=== PATIENT | male | born 1945 | race Caucasian/White ===

== ENCOUNTER → 2016-07-01 | Outpatient (CLI) | payer OTHER ==
[2016-07-01 12:15] LABS: BASOPHILS # (AUTO) 0.05 10*3/UL; BASOPHILS % (AUTO) 0.5 % (0-1); EOSINOPHILS % (AUTO) 2.1 % (0-8); HEMATOCRIT 41.2 % (42.0-52.0); HEMOGLOBIN 13.6 g/dL (14.0-18.0); IMM GRAN % (AUTO) 0.5 % (0-5); IMM GRAN# (AUTO) 0.05 10*3/UL; LYMPHOCYTES # (AUTO) 2.77 10*3/uL; LYMPHOCYTES % (AUTO) 25.7 % (10-50); MEAN CORPUSCULAR HEMOGLOBIN 26.6 PG (27-31); MEAN PLATELET VOLUME 9.8 FL (7.4-12.2); MONOCYTES # (AUTO) 0.82 10*3/UL (0.3-0.8); MONOCYTES % (AUTO) 7.6 % (5-15); NEUTROPHILS # (AUTO) 6.84 10*3/UL; NEUTROPHILS % (AUTO) 63.6 % (50-80); RDW COEFFICIENT OF VARIATION 15.9 % (11.5-14.5); RED BLOOD COUNT 5.11 10^6/uL (4.70-6.10); WHITE BLOOD COUNT 10.76 10^3/uL (4.8-10.8)
[2016-07-01 12:19] LABS: PLATELET MORPHOLOGY COMMENT NORMAL MORPHOLOGY (NORM)
== END ==
LOC: MOB LAB 09:14
DX: D72.829 Elevated white blood cell count, unspecified (principal); F17.220 Nicotine dependence, chewing tobacco, uncomplicated
CPT/HCPCS: 36415; 85025

== ENCOUNTER → 2016-07-07 | Outpatient (CLI) | payer OTHER | LOC: MMPC 11:11 | PROVIDERS: ATTEND Surgery | DX: Z12.11 Encounter for screening for malignant neoplasm of colon (principal); K21.9 Gastro-esophageal reflux disease without esophagitis; Z79.899 Other long term (current) drug therapy | CPT/HCPCS: 99213; G0463 ==

== ENCOUNTER → 2016-07-13 | Outpatient (CLI) | payer OTHER | LOC: LAB 11:05 | PROVIDERS: ATTEND Surgery | DX: Z22.322 Carrier or suspected carrier of Methicillin resistant Staphylococcus aureus (principal) | CPT/HCPCS: 87641 ==

== ENCOUNTER 2016-07-15 07:44 | Day surgery (SDC) | payer OTHER ==
[~2016-07-15 07:44] MED LIST: LIDOCAINE 2% VISCOUS(20 MG/1 ML) - 15 ML UD CUP PO ONE; LIDOCAINE HCL/PF 2% (20 MG/ML) - 5 ML SYRINGE ONE; LIDOCAINE W/ SODIUM BICARB 0.5 ML SYR ONE; Lactated Ringers 1,000 ML PRIMARY IV ONE; MIDAZOLAM 5 MG/1 ML ONE; fentaNYL Inj 100 MCG/2 ML VIAL ONE
--- NOTE | 2016-07-15 09:10 | GEN.OPNOTE ---
EGD / Colonoscopy Report Surgery Date: 07/15/16 Preoperative Diagnosis: GERD. Colon cancer screening. History of low iron stores. Postoperative Diagnosis: Same with small hiatal hernia and diverticulosis of the sigmoid colon. Procedure: #1 esophagogastroduodenoscopy with biopsy. #2 complete colonoscopy. Surgeon: Olayinka Santacruz MD Anesthesia Provider: Jordan Hackett CRNA Anesthesia Type: MAC Indications: See preoperative diagnosis. EGD Findings: Esophagus: [Normal] GE Junction : [Normal with a small hiatal hernia.] Fundus : [Normal] Body : [Normal] Prepyloric : [Erythema and friability consistent with gastritis.] Small Intestine : [Normal] A lubricated flexible upper endoscope was inserted and passed through the esophagus and stomach into the duodenum. Duodenum and duodenal bulb were unremarkable. Pyloric channel was widely patent. There is erythema and friability of the gastric antrum. Multiple biopsies were taken. Hemostasis was assured. The scope was retroflexed. There is a small hiatal hernia. The scope was straightened. Air was aspirated. The scope was withdrawn into the distal esophagus. As patient has chronic heartburn and is on a proton pump inhibitor I opted to do several random biopsies at the GE junction. Hemostasis was assured. The scope was withdrawn through the remainder of a normal- appearing esophagus completing that portion of the procedure. Colonoscopy Findings: Prep : [Excellent] Cecum : [Normal] Ascending : [Normal] Transverse : [Normal] Sigmoid : [Diverticulosis] Rectum : [Normal] Digital Rectal Exam : [Slightly enlarged. Small nodule on the right side. PSA 2.9 in 2016.] A lubricated flexible colonoscope was inserted and passed to the blind end of the cecum. The appendiceal orifice and ileocecal valve were clearly seen. Air was aspirated as the scope was withdrawn. Other than sigmoid diverticulosis the colonoscopy was normal without polyp, tumor, neoplastic mass, infectious or inflammatory process. The scope was withdrawn completing the procedure. Patient tolerated all aspects of the procedure well without complication. He was taken to outpatient surgery in stable condition. We will call the biopsy results when available. Next colonoscopy would be recommended in 10 years time.
[2016-07-15 10:31] VITALS: TEMP 96.8
[2016-07-15 10:36] VITALS: RESP 16
== END 2016-07-15 10:13 | disposition home or self-care (01) ==
LOC: SDSC 07:44
PROVIDERS: ATTEND Surgery
DX: Z12.11 Encounter for screening for malignant neoplasm of colon (principal); K21.9 Gastro-esophageal reflux disease without esophagitis; K44.9 Diaphragmatic hernia without obstruction or gangrene; K57.30 Diverticulosis of large intestine without perforation or abscess without bleeding
CPT/HCPCS: 43239; 45378; J2704; J3010; J2001; J2250; J7120

== ENCOUNTER 2016-08-27 10:40 | Observation (INO) | payer OTHER ==
[2016-08-27] MEDS ORDERED: ASPIRIN 81 MG (BABY) CHEWABLE TABLET PO ONE (10:53)
[2016-08-27] MEDS ORDERED: NORMAL SALINE 10 ML SYRINGE FLUSH IVP PRN ×2 (10:53→13:18)
[2016-08-27] MEDS ORDERED: Sodium Chloride 0.9% 1,000 ML PRIMARY IV ONE (10:53)
--- NOTE | 2016-08-27 10:55 | EKG ---
[address] [address] Measurements Intervals [place] Rate: 57 P: 80 WI: 209 QRS: -6 QRSD: 94 T: 55 QT: 402 QTc: 396 Interpretive Statements SINUS BRADYCARDIA No prior study available for comparison and no acute ST-T changes to suggest acute injury. Electronically Signed On 08-27-16 12:36:02 MDT by Garrison Donnelly MD [id number]
[2016-08-27 11:00] LABS: BASOPHILS # (AUTO) 0.05 10*3/UL; BASOPHILS % (AUTO) 0.4 % (0-1); EOSINOPHILS # (AUTO) 0.33 10*3/UL; EOSINOPHILS % (AUTO) 2.8 % (0-8); HEMATOCRIT 39.8 % (42.0-52.0); HEMOGLOBIN 13.3 g/dL (14.0-18.0); LYMPHOCYTES # (AUTO) 3.43 10*3/uL; MEAN CORPUSCULAR HEMOGLOBIN 26.5 PG (27-31); MEAN CORPUSCULAR HGB CONC 33.4 g/dL (33-37); MEAN PLATELET VOLUME 9.6 FL (7.4-12.2); MONOCYTES # (AUTO) 1.08 10*3/UL (0.3-0.8); MONOCYTES % (AUTO) 9.2 % (5-15); NEUTROPHILS # (AUTO) 6.85 10*3/UL; NEUTROPHILS % (AUTO) 58.2 % (50-80); RED BLOOD COUNT 5.02 10^6/uL (4.70-6.10)
[2016-08-27 11:05] LABS: PLATELET MORPHOLOGY COMMENT NORMAL MORPHOLOGY (NORM); RBC MORPHOLOGY COMMENT NORMAL MORPHOLOGY (NORM); WBC MORPHOLOGY COMMENT NORMAL MORPHOLOGY (NORM)
[2016-08-27 11:06] LABS: CALCIUM 9.5 mg/dL (8.7-10.7); SERUM ALBUMIN 4.1 g/dL (3.5-4.8)
[2016-08-27 11:18] LABS: CREATINE KINASE MB 0.59 NG/ML (0.00-5.00); TROPONIN I < 0.012 ng/mL (< 0.040)
--- NOTE | 2016-08-27 11:56 | DI ---
AP CHEST X-RAY, 08/27/2016 10:53 AM : Clinical History: Chest pain. Previous Exam: 01/04/2007. There is no acute soft tissue or bony abnormality. Heart size is normal. Lungs are clear. Mediastinal structures are normal. There are no pulmonary nodules. Reading: Normal chest x-ray. There has been no change.
--- NOTE | 2016-08-27 12:58 | DI ---
CT ANGIOGRAM OF THE CHEST, 08/27/2016 11:47 AM : Clinical History: Chest pain. Elevated D-dimer test. Previous Exam: None at this facility. Scans are performed from the base of the neck to the lower lung bases following IV administration of 65 mL of Isovue 300. Proprietary automated bolus tracking software was used to verify the timing of t he injection. The base of the neck and thoracic inlet are normal. There are no abnormal axillary, supraclavicular, mediastinal, or hilar nodes. The heart is normal. Coronary artery calcifications are present in the l eft mainstem, the proximal and middle thirds of the LAD, and scattered throughout the right coronary artery. The ascending aorta is ectatic measuring about 37 mm in diameter. There is pulmonary arterial hypertension but no pulmonary emboli are identified and there is no pulmonary infarction. No acute i nfiltrate or effusion is present. There are extensive bullae in both upper lobes as well as scattered throughout the remaining lobes indicating bullous emphysema. Both adrenal glands and the spleen as w ell as the visualized portions of the liver and pancreas are normal. There is osteoporosis. READIN. The CT angiogram of the pulmonary arteries show no emboli. There is pulmonary arterial hypertensi on. 2. Coronary artery disease. Bullous emphysema. Osteoporosis.
[2016-08-27] MEDS ORDERED: CALCIUM CARBONATE 500 MG (TUMS) CHEWABLE TABLET PO PRN (13:18)
[2016-08-27] MEDS ORDERED: LIDOCAINE W/ SODIUM BICARB 0.5 ML SYR SUBD PRN (13:18)
[2016-08-27] MEDS ORDERED: Ropinirole Tab 1 MG TAB PO PRN (13:45)
--- NOTE | 2016-08-27 14:15 | PDOC ---
Chest Pain HPI - General Chief Complaint: Chest Pain Stated Complaint: chest pain Date Seen by Provider: 08/27/16 Time Seen by Provider: 10:42 Source: Patient, EMS Exam Limitations: POSITIVE: No limitations Treatment Prior to Arrival: REPORTS: None Nurse's Notes Reviewed & Considered: Yes EMS Report Reviewed & Considered: Verbal - History of Present Illness Initial Comments: The patient is a 71-year-old male who is brought to the emergency room by ambulance from his residence at the [facility]. 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 Patient describes the pain as an "ache". Patient states that this pain was "severe", and it lasted approximately 30 minutes and has now resolved. Patient states he had a similar episode approximately 10 days ago, but this episode was more severe and more prolonged and lasted about an hour. Patient has a known history of peripheral vascular disease. He has had a repair of an aortic aneurysm and he underwent a bilateral femoral popliteal bypass 3 years ago, followed by an [id number]-[id number] amputation of his left leg due to "an infection". He states he used to smoke 1-1/2 packs of cigarettes per day up until 3 years ago. 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, but that episode more severe and persistent) Recently seen/treated/hospitalized: No Any Prior Injuries Related to Current Complaint?: No - Patient Home Medications Home Medications: Home Medications Aspirin 81 mg PO DAILY tab 10/15/14 Calcium Carbonate [Tums] 200 mg PO DAILY PRN 11/28/14 Ropinirole HCl 1 tab PO QD PRN #30 tab 03/21/15 Amlodipine Besylate 1 tab PO QD #90 tab 09/30/15 Pravastatin Sodium [Pravachol] 1 tab PO DAILY #30 tab 07/01/16 Pantoprazole Sodium [Protonix] 1 tab PO QD #90 tablet 08/17/16 Ascorbic Acid [Vitamin C] 1,000 mg PO DAILY 08/27/16 Ferrous Sulfate [High Potency Iron] 67 mg PO DAILY 08/27/16 - Patient Allergies Allergies/Adverse Reactions: Allergies Allergy/AdvReac Type Severity Reaction Status Date / Time No Known Drug Allergies Allergy NOT Verified 08/27/16 10:49 APPLICABLE Past Medical History - heen HEENT History: Dentures/Partials Additional HEENT History: full dentures Cardiovascular History: Hypertension, PVD, Other (please comment) Additional Cardiovasular History: Hx of AAA repair, femoral artery repair bilateral. Respiratory History: Other (please comment) Additional Respiratory History: Quit smoking in 2012--was a 2 ppd smoker for many years prior to quiting. 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 LEFT HIP FX Neurological History: Denies History Blood Disorders: Anemia Psychiatric History: Denies History History of Sexually Transmitted Diseases: No Male Reproductive History: Denies History Cancer History: Denies History In Past Year Been Physically Harmed or Verbally Threatened: No History of MDRO: Yes History of Other Communicable Diseases: No Tobacco Use: Former Smoker Alcohol Use: Other How much alcohol do you normally drink a day?: 3-4 SHOTS ONCE WEEKLY Substance Use Type: None Previous Surgical History: Yes Type / Date of Surgery: LEFT LEG ATK AMP/ AORTOBIFEMORAL BYPASS/ FEM POP BYPASS BILAT/ DISCECTOMY/ TONSILLECTOMY/ EGD/ ERCP/AAA REPAIR Anesthesia Reactions: Yes ("WAKES UP FIGHTING WITH CERTAIN MEDS") Malignant Hyperthermia: No Significant Family History: Heart disease, Hypertension, Vascular disease Past Medical History Reviewed: Reviewed - No Changes ROS - Limitations ROS Limitations: No Limitations Constitution: REPORTS: Denies Symptoms Cardiovascular: REPORTS: Chest Pain Respiratory: REPORTS: Denies Resp Symptoms Neurological: REPORTS: Denies Neuro Symptoms Gastrointestinal: REPORTS: Denies GI Symptoms Endocrine: REPORTS: Denies Symptoms Musculoskeletal: REPORTS: Denies MS Symptoms Genitourinary: REPORTS: Denies Symptoms Eyes: REPORTS: Denies Symptoms ENT: REPORTS: Denies Symptoms Skin: REPORTS: Denies Skin Symptoms Lympathic: REPORTS: Denies Lympathic Symptoms Immunologic: POSITIVE: Denies Symptoms Psychiatric: POSITIVE: Denies Psych Symptoms Chest Pain PE - General Appearance General Appearance: REPORTS: Alert, Cooperative, No Acute Distress, No Evidence of Trauma - HEENT HEENT: POSITIVE: Head Inspection Nml, Eyes Inspection Nml, Ears Inspection Nml, Nose Inspection Nml, Oral/Dental Inspect. Nml, Pharynx Inspect. Nml, PERRL, EOMI - Neck Neck: REPORTS: Normal Inspection, No Carotid Bruit - Respiratory Respiratory: REPORTS: No Respiratory Distress, Breath Sounds Normal, Chest Non- Tender - Cardiovascular Cardiovascular: REPORTS: Regular Rate and Rhythm, Heart Sounds Normal, Equal Pulses, Strong Pulses, No Murmur, No Gallop, No Friction Rub, No JVD Peripheral Pulses: Radial (R): 2+, Radial (L): 2+ - Abdomen Abdomen: Soft: (All Quadrants), Normal Bowel Sounds: (All Quadrants), Denies Tenderness: (All Quadrants), No Splenomegaly: (All Quadrants), No Hepatomegaly: (All Quadrants), No Guarding: (All Quadrants), No Rebound: (All Quadrants), No Palpable Pulse: (All Quadrants), No Palpabale Mass: (All Quadrants), No Distention: (All Quadrants), No Rigidity: (All Quadrants) - Skin Skin: REPORTS: Intact, Normal For Race, Warm, Dry, No Rash - Extremities Extremity: Non-Tender: (All Extremities), Normal ROM: (All Extremities), Normal Inspection: (All Extremities), Pelvis Stable: (All Extremities), Normal Tendon Exam: (All Extremities) Additional Extremities Details: Patient is status post [id number]-[id number] amputation left leg 3 years ago following a bilateral femoral-popliteal bypass. 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 Lab Results Reviewed: Yes (d-dimer elevated; troponin normal) Lab Results:: Laboratory Results 08/27/16 Range/Units 10:30 WBC 11.77 H (4.8-10.8) 10^3/uL RBC 5.02 (4.70-6.10) 10^6/uL Hgb 13.3 L (14.0-18.0) g/dL Hct 39.8 L (42.0-52.0) % MCV 79.3 L (80-90) FL MCH 26.5 L (27-31) PG MCHC 33.4 (33-37) g/dL RDW Std Deviation 45.1 (39-50) fL RDW Coeff of Abdirizak 15.8 H (11.5-14.5) % Plt Count 379 H (140-350) 10*3/uL MPV 9.6 (7.4-12.2) FL Immature Gran % (Auto) 0.3 (0-5) % Neut % (Auto) 58.2 (50-80) % Lymph % (Auto) 29.1 (10-50) % [place] % (Auto) 9.2 (5-15) % Eos % (Auto) 2.8 (0-8) % Baso % (Auto) 0.4 (0-1) % Immature Gran # (Auto) 0.03 10*3/UL Neut # (Auto) 6.85 10*3/UL Lymph # (Auto) 3.43 10*3/uL [place] # (Auto) 1.08 H (0.3-0.8) 10*3/UL Eos # (Auto) 0.33 10*3/UL Baso # (Auto) 0.05 10*3/UL WBC Morphology Comment Normal morphology (NORM) Plt Morphology Comment Normal morphology (NORM) RBC Morph Comment Normal morphology (NORM) D-Dimer 4.12 H (0.00-0.59) mg/L Sodium 142 (135-145) meq/L Potassium 4.0 (3.8-5.2) meq/L Chloride 108 (98-112) meq/L Carbon Dioxide 22 L (23-33) meq/L Anion Gap 12 (5-20) BUN 24 H (7-22) mg/dL Creatinine 1.0 (0.70-1.50) mg/dL Estimated GFR (>60 ml/min/1.73m(2)) BUN/Creatinine Ratio 24.00 H (6-20) Glucose 86 (78-110) mg/dL Calculated Osmolality 296.0 H (267-292) mOsm/kg Calcium 9.5 (8.7-10.7) mg/dL Total Bilirubin 0.5 (0.3-1.2) mg/dL AST 41 (21-57) IU/L ALT 21 (21-72) IU/L Alkaline Phosphatase 116 (38-126) IU/L CK-MB (CK-2) 0.59 (0.00-5.00) NG/ML Troponin I < 0.012 (< 0.040) ng/mL Total Protein 7.5 (6.1-8.0) g/dL Albumin 4.1 (3.5-4.8) g/dL Globulin 3.4 (2.50-4.10) g/dL Albumin/Globulin Ratio 1.20 L (1.3-2.0) mg/g EKG Interpreted/Reviewed By Me:: Yes (normal) EKG Interpretation:: POSITIVE: Normal Sinus Rhythm, Normal Rate, Normal Intervals, Normal [place], Normal QRS, Normal ST/T - Patient's Progress Pain Medication Addressed: POSITIVE: Not Applicable School/Work Release Addressed: POSITIVE: Not Applicable Re-Examine Time: 12:55 Re-Examine Comment: Patient remained pain-free and comfortable throughout his stay in the emergency room Status: POSITIVE: Unchanged, Re-Examined Quality Measure Initiative: CP/AMI: POSITIVE: EKG, ASA - Consult Consult (If Yes, Name of Consulting MD & Time Called): Yes (Dr. Macario, hospitalist , [id number]) Consulting MD will see pt:: [place] [facility] [place] Counseled: POSITIVE: Patient, RE: Lab Results, RE: Radiology Results, RE: DX, RE : Need for F/U Patient Care Time - Estimated PCT Patient Care Time (In Minutes): 50 Vital Signs - Recent Vital Signs Vital Signs: Vital Signs (Last 8 hours) Temp Pulse Pulse Pulse Resp BP Pulse Ox 08/27/16 10:40 97.4 F 65 67 67 14 147/82 93 - VS Reviewed Vital Signs Reviewed: Yes Discharge Clinical Impression: Chest pain Discharge Disposition: Admit to Inpatient Condition: Stable Date Decision to Admit to Inpatient: 08/27/16 Time Decision to Admit to Inpatient: 12:45
--- NOTE | 2016-08-27 15:54 | PDOC ---
History and Physical - History of Present Illness Date and Time of Service: 08/27/2016, 1550 Chief Complaint: Chest pain History of Present Illness: This very pleasant 71-year-old male with underlying peripheral vascular disease status post aortobifemoral bypass, [id number] amputation on the left, hypertension, hypercholesterolemia, and history of tobacco abuse, and family history of heart disease, with complaints of chest pain today. He states that he thought he might be having a heart attack. He states that the pain started posteriorly near the spine and radiating around to the chest bilaterally. No shortness of breath, no nausea or vomiting, no abdominal pain. States the pain went away on its own. He was not active at the time of this pain. He had a similar episode 4 days ago. He denies any syncope or presyncope type symptoms. He has never had a stent, he has never had a heart attack. In the emergency room, he was found to be in sinus bradycardia which has an persistent on the floor here, his d-dimer was elevated as well. A CTA of the chest showed no evidence for pulmonary emboli. Past Medical History Medical History: 1. Hypertension. 2. Hypercholesterolemia. 3. History of tobacco abuse. 4. Status post left [id number]-jpc-ovea amputation. Surgical History: 1. Aortobifemoral bypass. 2. Jtsfl-hzu-ttch amputation on the left side Pertinent Family History: Significant for coronary artery disease. Past Social History: History of smoking but no longer smokes. Not , no kids, retired and lives here in [place], [place]. Drinks occasionally. Tobacco Use: Former Smoker Substance Use Type: None Alcohol Use: Occasionally Medication / Allergies Home Medications: Home Medications Medication Instructions Recorded Confirmed Type RX: Aspirin 81 mg PO DAILY tab 10/15/14 08/27/16 History Calcium Carbonate [Tums] 200 mg PO DAILY PRN 11/28/14 08/27/16 History RX: Ropinirole HCl 1 tab PO QD PRN #30 tab 03/21/15 08/27/16 Clinic RX: Amlodipine Besylate 1 tab PO QD #90 tab 09/30/15 08/27/16 Clinic Pravastatin Sodium [Pravachol] 1 tab PO DAILY #30 tab 07/01/16 08/27/16 Clinic Pantoprazole Sodium [Protonix] 1 tab PO QD #90 tablet 08/17/16 08/27/16 Clinic Ascorbic Acid [Vitamin C] 1,000 mg PO DAILY 08/27/16 08/27/16 History RX: Ferrous Sulfate [High Potency 67 mg PO DAILY 08/27/16 08/27/16 History Iron] Allergies/Adverse Reactions: Allergies Allergy/AdvReac Type Severity Reaction Status Date / Time No Known Drug Allergies Allergy NOT Verified 08/27/16 10:49 APPLICABLE Review of Systems - Review of Systems All Systems: Reviewed & No Additional Complaints Except as Stated (I did a 12 point review of systems and it was negative other than the history of present illness and exceptions noted below.) - Constitutional Constitutional: REPORTS: Negative System Review - Respiratory Respiratory: REPORTS: Negative System Review - Cardiovascular Cardiovascular: REPORTS: See HPI - Gastrointestinal Gastrointestinal / Abdominal: REPORTS: Negative System Review - Genitourinary Genitourinary: REPORTS: Negative System Review - Musculoskeletal Musculoskeletal: REPORTS: Negative System Review - Hematlogic / Lymphatic Hematologic / Lymphatic: REPORTS: Negative System Review - Neurological Neurologic: REPORTS: Negative System Review Exam - Vitals Vital Signs: Vital Signs Height 6 in Weight 156 lb 9.6 oz Vital Signs - Last Taken Temperature 97.4 F 08/27/16 10:40 Pulse Rate 65 08/27/16 10:40 Respiratory Rate 14 08/27/16 10:40 Blood Pressure 147/82 08/27/16 10:40 Pulse Ox 93 08/27/16 10:40 - General General Appearance: POSITIVE: No Acute Distress, Cooperative - Head Head Exam: POSITIVE: Normal Inspection, Normocephalic, Atraumatic - Eye Eye Exam: POSITIVE: No Scleral Icterus - ENT ENT Exam: POSITIVE: Mucous Membranes Moist - Neck Neck Exam: POSITIVE: Normal Inspection, No Tenderness, No Thyromegaly - Respiratory Respiratory Exam: POSITIVE: Clear to Auscultation - Bilaterally, Breathing Non Labored - Cardiovascular Cardiovascular Exam: POSITIVE: No Murmur, No Clicks, No Gallops, No Rubs, PMI Non-Displaced, Bradycardia, No JVD - GI/Abdominal GI/Abdominal Exam: POSITIVE: Normal Bowel Sounds, Non Tender, Non Distended, Soft - Rectal Rectal Exam: POSITIVE: Deferred - External Exam: POSITIVE: Deferred Exam: POSITIVE: Deferred - Extremities Extremities Exam: POSITIVE: No Clubbing Present, No Edema Present, No Cyanosis Present Additional Extremities Exam Details: Left stump is intact, no evidence of skin breakdown. - Back Back Exam: POSITIVE: Normal Inspection, No CVA Tenderness - Neurological Neurological Exam: POSITIVE: Alert, Oriented x 3, No Facial Droop, Speech Intact / Clear, Moves All Extremities Equally - Psychiatric Psychiatric Exam: POSITIVE: Normal Affect, Normal Mood - Integumentary Integumentary Exam: POSITIVE: Normal Color, Warm, Dry, Intact Results - Labs CBC and BMP: 08/27/16 10:30 08/27/16 10:30 Labs - Last 24 Hours: Laboratory Results 08/27/16 Range/Units 10:30 WBC 11.77 H (4.8-10.8) 10^3/uL RBC 5.02 (4.70-6.10) 10^6/uL Hgb 13.3 L (14.0-18.0) g/dL Hct 39.8 L (42.0-52.0) % MCV 79.3 L (80-90) FL MCH 26.5 L (27-31) PG MCHC 33.4 (33-37) g/dL RDW Std Deviation 45.1 (39-50) fL RDW Coeff of Abdirizak 15.8 H (11.5-14.5) % Plt Count 379 H (140-350) 10*3/uL MPV 9.6 (7.4-12.2) FL Immature Gran % (Auto) 0.3 (0-5) % Neut % (Auto) 58.2 (50-80) % Lymph % (Auto) 29.1 (10-50) % [place] % (Auto) 9.2 (5-15) % Eos % (Auto) 2.8 (0-8) % Baso % (Auto) 0.4 (0-1) % Immature Gran # (Auto) 0.03 10*3/UL Neut # (Auto) 6.85 10*3/UL Lymph # (Auto) 3.43 10*3/uL [place] # (Auto) 1.08 H (0.3-0.8) 10*3/UL Eos # (Auto) 0.33 10*3/UL Baso # (Auto) 0.05 10*3/UL WBC Morphology Comment Normal morphology (NORM) Plt Morphology Comment Normal morphology (NORM) RBC Morph Comment Normal morphology (NORM) D-Dimer 4.12 H (0.00-0.59) mg/L Sodium 142 (135-145) meq/L Potassium 4.0 (3.8-5.2) meq/L Chloride 108 (98-112) meq/L Carbon Dioxide 22 L (23-33) meq/L Anion Gap 12 (5-20) BUN 24 H (7-22) mg/dL Creatinine 1.0 (0.70-1.50) mg/dL Estimated GFR (>60 ml/min/1.73m(2)) BUN/Creatinine Ratio 24.00 H (6-20) Glucose 86 (78-110) mg/dL Calculated Osmolality 296.0 H (267-292) mOsm/kg Calcium 9.5 (8.7-10.7) mg/dL Total Bilirubin 0.5 (0.3-1.2) mg/dL AST 41 (21-57) IU/L ALT 21 (21-72) IU/L Alkaline Phosphatase 116 (38-126) IU/L CK-MB (CK-2) 0.59 (0.00-5.00) NG/ML Troponin I < 0.012 (< 0.040) ng/mL Total Protein 7.5 (6.1-8.0) g/dL Albumin 4.1 (3.5-4.8) g/dL Globulin 3.4 (2.50-4.10) g/dL Albumin/Globulin Ratio 1.20 L (1.3-2.0) mg/g - EKG Data -: EKG Interpreted by Me Rate: Bradycardia EKG Shows Normal: Sinus Rhythm - Imaging Status: Image Reviewed by Me (Chest x-ray, on my view, negative for pneumonia or acute cardiopulmonary event. CTA was read as negative for pulmonary emboli and on my view it appears consistent with emphysema but no infiltrate.) Assessment and Plan - Patient Problems (1) Chest pain Current Visit: Yes Status: Acute (2) Hypertension Current Visit: Yes Status: Acute Qualifiers: Hypertension type: essential hypertension Qualified Description: Essential hypertension Qualifier Code(s): (I10) Essential (primary) hypertension (3) Hypercholesterolemia Current Visit: Yes Status: Acute (4) Peripheral vascular disease Current Visit: Yes Status: Acute (5) History of tobacco abuse Current Visit: Yes Status: Acute (6) Family history of heart disease Current Visit: Yes Status: Acute - Assessment / Plan Additional Assessment/Plan Details: Plan: 1. Do serial enzymes and EKG if necessary 2. Aspirin to be continued, but I don't think this is unstable angina, so I'll hold off on therapeutic Lovenox and also on beta milvia. 3. We'll have the patient do a stress test chemical 4. Proton pump inhibitor will be continued 5. Nitroglycerin when necessary for chest pain 6. Morphine if necessary via IV 7. Oxygen if necessary 8. If testing indicates further need for evaluation, discussion with cardiology. If testing is negative for myocardial infarction and no further indication for coronary artery disease, consider outpatient workup for GI source , pulmonary source, or other 9. Given his peripheral vascular disease, I think it would be prudent to screen for carotid artery disease and will order a carotid ultrasound to look for this. I discussed the above plan with the patient and he agreed.
[2016-08-27] MEDS ORDERED: NITROGLYCERIN 0.4 MG SL TAB (BOTTLE OF 3) SL PRN (15:59)
[2016-08-27] MEDS ORDERED: ACETAMINOPHEN 325 MG TABLET PO PRN (16:00)
--- NOTE | 2016-08-27 16:58 | EKG ---
[address] [place] [address] Measurements Intervals [place] Rate: 62 P: CA: 0 QRS: -5 QRSD: 89 T: 50 QT: 418 QTc: 422 Interpretive Statements ABNORMAL RHYTHM ECG INTERMITTANT [place] 2ND DEGREE BLOCK Compared to ECG 08/27/2016 10:43:12 Sinus bradycardia no longer present ST (T wave) deviation no longer present Myocardial infarct finding no longer present Electronically Signed On 08-27-16 17:50:05 MDT by Gustavo Degroot [id number]
[2016-08-27] MEDS: PANTOPRAZOLE 40 MG TABLET PO SCH (17:20)
--- NOTE | 2016-08-27 17:30 | DI ---
HISTORY: Peripheral vascular disease. History of smoking. COMPARISON: None available. TECHNIQUE: Sonographic images were obtained through the carotid systems, bilaterally. FINDINGS: Examination demonstrates a mild amount of plaque within the carotid bulbs, bilaterally. There is some mild increased peak systolic velocity in the internal carotid artery from the proximal through distal portions. There is mild spectral broadening. The ICA/CCA ratio on the left measures 1.7 and on the right measures 0.8. There is antegrade flow in the vertebral arteries. IMPRESSION: 1. Mild degree of plaque formation in both carotid bulbs with no significant stenosis on the right an d 50-69% stenosis on the left. NOTE: The interpreting Radiologist was not present at the time of ultrasound interrogation.
[2016-08-27] MEDS ORDERED: Pravastatin Tab 40 MG TAB PO SCH (21:00)
[2016-08-28 06:03] LABS: CHOL/HDL RATIO 4.07 RATIO (0-4.0); LDL CHOLESTEROL,CALCULATED 51.8 mg/dL
[2016-08-28 06:20] LABS: FREE T4 (FREE THYROXINE) 1.2 ng/dL (0.93-1.71)
[2016-08-28] MEDS ORDERED: ENOXAPARIN SODIUM 40 MG/0.4 ML SYRINGE SUBCUT SCH (09:00)
[2016-08-28] MEDS ORDERED: ASPIRIN 81 MG (BABY) CHEWABLE TABLET PO SCH (09:00)
--- NOTE | 2016-08-28 09:42 | STRESSTEST ---
[facility] Interpretive Statements This is a 71 YO with PVD, hx of smoking + fam history of CAD, HTN, hypercholesterolemia, no DMII, who presented with chest pain. Resolved and VA ruled out. Does have a Mobitz, type I block. Colleen scan stress test done, 2 day protocol, resting images yesterday. Had stress portion today, had SOB, dizziness, and felt hot, no chest pain with test. Plan: review images with radiology Electronically Signed On 08-28-16 14:39:38 MDT by Garrison Donnelly MD [email or web address]
[2016-08-28] MEDS: PANTOPRAZOLE 40 MG TABLET PO SCH (09:54)
[2016-08-28 12:44] VITALS: RESP 16; TEMP 97.9
--- NOTE | 2016-08-28 14:20 | DI ---
HISTORY: Chest pain. TECHNIQUE: 37 mCi rest exam. 36.4 mCi stress exam. FINDINGS: There is a somewhat fixed defect along the septum. This could be due to scarring, or jackie fact. Artifact is favored. This is not appreciated on the corresponding polar maps. There is no definite reversibility noted. The ejection fraction is 76%. IMPRESSION: 1. Predominantly fixed defect along the septum with some reversibility favor artifact, and insertion of the papillary muscle. Scarring can have a similar appearance. Ischemia is least likely. There is no corresponding wall motion abnormality.
--- NOTE | 2016-08-28 15:36 | DCSUMMARY ---
Hospitalization Summary Admit Date: 08/27/16 Discharge Date: 08/28/16 Primary Diagnosis:: chest pain, atypical, unclear etiology, question angina Hospital Course: This very pleasant 71-year-old male with several risk factors for coronary artery disease including family history, history of smoking, hypertension, hypercholesterolemia, but no diabetes. He came in with complaints of chest pain and ruled out for myocardial infarction. He had severe peripheral vascular disease in the past that resulted in an aortofemoral bifemoral bypass in the past. 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 Given this, we did do a stress test and we found that the patient had a possible reversible defect along the septal wall although the reading radiologist felt that it could be artifact and favored that over reversible defect. He also felt that it could be artifact from where the papillary muscle inserts. I spoke with cardiology in [place] regarding this, and we are both suspicious, based on the patient's risk factors, that this could be coronary artery disease and feel that it would be best to pursue this with heart catheterization. Patient will be transferred to [place] for further evaluation. During the hospital stay I also screened carotid arteries for potential carotid artery disease given his peripheral vascular disease. On the left side the patient has a 50-69% stenosis. As this is an somewhat kemp area for non- symptomatic internal carotid artery disease, I'm going to go ahead and get a brain MRI scan to look for possible silent strokes on the left side that would indicate symptomatic carotid artery stenosis/carotid artery disease which may be an indication for a carotid endarterectomy in this patient for stroke prevention. He is on maximal medical therapy and tolerates that very well at this point. We tried to arrange vascular surgery follow-up. At a minimum, if there is no indication to do carotid endarterectomy at this time or in the near future, the patient probably needs monitored on an annual basis with carotid ultrasound and tell his 5 year survival rate puts him at greater risk for doing a carotid endarterectomy. Obviously, this will be determined on an outpatient basis as well. Today, chest pain had resolved, no shortness breath, no nausea or vomiting. Assessment and Plan: 1. As per discharge assessments noted 2. Disposition: [facility], Dr. Mathews 3. Condition on discharge, stable and improved. 4. Diet: regular diet 5. Activities: As per [facility] 6. Follow-Up: 1. Dr. Martínez on September 28 are believe. 2. 7. Medications at the Time of Discharge: Active Medications Generic Name Dose Route Start Last Admin Trade Name Freq PRN Reason Stop Dose Admin Acetaminophen 650 mg 08/27/16 16:00 Tylenol PO Q6H PRN pain, fever Amlodipine Besylate 10 mg 08/27/16 13:18 08/28/16 13:11 Norvasc PO 10 mg DAILY DAVID Administration Aspirin 81 mg 08/28/16 09:00 08/28/16 09:55 Aspirin Chewable Tab PO 81 mg DAILY DAVID Administration Calcium Carbonate 1 tab 08/27/16 13:18 Tums PO DAILY PRN Heartburn Enoxaparin Sodium 40 mg 08/28/16 09:00 08/28/16 09:54 Lovenox Inj SUBCUT 40 mg DAILY ADVID Administration Sodium Chloride 25 mls @ 200 mls/hr 08/27/16 13:18 Normal Saline 0.9% IV .Post Infusion PRN No Primary IV for Flush ONLY Lidocaine HCl 0.5 ml 08/27/16 13:18 Lidocaine Buffered Inj SUBD ONCE PRN IV Starts Nitroglycerin 1 tab 08/27/16 15:59 Nitrostat Sl 0.4mg Tab SL Q5M PRN Chest Pain Pantoprazole Sodium 40 mg 08/27/16 16:30 08/28/16 09:54 Protonix PO 40 mg AC BK DAVID Administration Pravastatin Sodium 40 mg 08/27/16 21:00 08/27/16 21:24 Pravachol PO 40 mg BEDTIME DAVID Administration Ropinirole HCl 2 mg 08/27/16 13:45 Requip PO DAILY PRN Leg Pain Sodium Chloride 5 - 20 ml 08/27/16 13:18 Saline Flush IVP BID PRN Flush 8. Time, care, counseling and coordination of care for this discharge is greater than 30 minutes.e Exam - Vitals Vital Signs: Vital Signs Temperature 97.9 F Temperature Source Oral Pulse Rate [Pulse Oximeter 69 Right] Pulse Rate 72 Respiratory Rate 16 Blood Pressure [Right Arm] 123/65 Pulse Ox 93 Oxygen Delivery Method Room Air Height 6 in Weight 158 lb 11.2 oz - General General Appearance: POSITIVE: No Acute Distress, Cooperative - Head Head Exam: POSITIVE: Atraumatic - Eye Eye Exam: POSITIVE: No Scleral Icterus - Respiratory Respiratory Exam: POSITIVE: Clear to Auscultation - Bilaterally, Breathing Non Labored - Cardiovascular Cardiovascular Exam: POSITIVE: RRR, No Murmur, No Clicks, No Gallops, No Rubs, No JVD - GI/Abdominal GI/Abdominal Exam: POSITIVE: Normal Bowel Sounds, Non Tender, Non Distended, Soft - Extremities Extremities Exam: POSITIVE: No Clubbing Present, No Edema Present, No Cyanosis Present - Neurological Neurological Exam: POSITIVE: Alert, Oriented x 3, No Facial Droop, Speech Intact / Clear, Moves All Extremities Equally Data Perinent Studies: Laboratory Results 08/27/16 08/27/16 08/28/16 Range/Units 10:30 17:09 05:41 WBC 11.77 H (4.8-10.8) 10^3/uL RBC 5.02 (4.70-6.10) 10^6/uL Hgb 13.3 L (14.0-18.0) g/dL Hct 39.8 L (42.0-52.0) % MCV 79.3 L (80-90) FL MCH 26.5 L (27-31) PG MCHC 33.4 (33-37) g/dL RDW Std Deviation 45.1 (39-50) fL RDW Coeff of Abdirizak 15.8 H (11.5-14.5) % Plt Count 379 H (140-350) 10*3/uL MPV 9.6 (7.4-12.2) FL Immature Gran % (Auto) 0.3 (0-5) % Neut % (Auto) 58.2 (50-80) % Lymph % (Auto) 29.1 (10-50) % [place] % (Auto) 9.2 (5-15) % Eos % (Auto) 2.8 (0-8) % Baso % (Auto) 0.4 (0-1) % Immature Gran # (Auto) 0.03 10*3/UL Neut # (Auto) 6.85 10*3/UL Lymph # (Auto) 3.43 10*3/uL [place] # (Auto) 1.08 H (0.3-0.8) 10*3/UL Eos # (Auto) 0.33 10*3/UL Baso # (Auto) 0.05 10*3/UL WBC Morphology Comment Normal morphology (NORM) Plt Morphology Comment Normal morphology (NORM) RBC Morph Comment Normal morphology (NORM) D-Dimer 4.12 H (0.00-0.59) mg/L Sodium 142 (135-145) meq/L Potassium 4.0 (3.8-5.2) meq/L Chloride 108 (98-112) meq/L Carbon Dioxide 22 L (23-33) meq/L Anion Gap 12 (5-20) BUN 24 H (7-22) mg/dL Creatinine 1.0 (0.70-1.50) mg/dL Estimated GFR (>60 ml/min/1.73m(2)) BUN/Creatinine Ratio 24.00 H (6-20) Glucose 86 (78-110) mg/dL Calculated Osmolality 296.0 H (267-292) mOsm/kg Calcium 9.5 (8.7-10.7) mg/dL Total Bilirubin 0.5 (0.3-1.2) mg/dL AST 41 (21-57) IU/L ALT 21 (21-72) IU/L Alkaline Phosphatase 116 (38-126) IU/L CK-MB (CK-2) 0.59 (0.00-5.00) NG/ML Troponin I < 0.012 < 0.012 < 0.012 (< 0.040) ng/mL Total Protein 7.5 (6.1-8.0) g/dL Albumin 4.1 (3.5-4.8) g/dL Globulin 3.4 (2.50-4.10) g/dL Albumin/Globulin Ratio 1.20 L (1.3-2.0) mg/g Triglycerides 171 (44-200) mg/dL Cholesterol 114 L (120-200) mg/dL LDL Cholesterol, Calc 51.800 mg/dL VLDL Cholesterol 34 (0-40) mg/dL HDL Cholesterol 28 L (40-150) mg/dL Cholesterol/HDL Ratio 4.07 H (0-4.0) RATIO TSH 1.17 (0.2700-4.2000) uIU/mL Free T4 1.20 (0.93-1.71) ng/dL Patient Problems - Patient Problem List (1) Chest pain Current Visit: Yes Status: Acute (2) Hypertension Current Visit: Yes Status: Acute Qualifiers: Hypertension type: essential hypertension Qualified Description: Essential hypertension Qualifier Code(s): (I10) Essential (primary) hypertension (3) Hypercholesterolemia Current Visit: Yes Status: Acute (4) Peripheral vascular disease Current Visit: Yes Status: Acute (5) History of tobacco abuse Current Visit: Yes Status: Acute (6) Family history of heart disease Current Visit: Yes Status: Acute (7) Carotid artery disease Current Visit: Yes Status: Acute Comment: 50-69% stenosis on the left side, but at this time would be considered asymptomatic. MRI might show signs of whether or not this could be a silent symptomatic carotid artery stenosis. Qualifiers: Laterality: left Qualified Description: Left-sided carotid artery disease Qualifier Code(s): (I77.9) Disorder of arteries and arterioles, unspecified
== END 2016-08-28 16:00 | disposition short-term general hospital (02) ==
LOC: ER 10:40 → MED/SURG 13:15
PROVIDERS: ADMIT Family Medicine; ATTEND Family Medicine
DX: R07.89 Other chest pain (principal); I10 Essential (primary) hypertension; E78.00 Pure hypercholesterolemia, unspecified; I73.9 Peripheral vascular disease, unspecified; Z87.891 Personal history of nicotine dependence; Z82.49 Family history of ischemic heart disease and other diseases of the circulatory system; I77.9 Disorder of arteries and arterioles, unspecified
CPT/HCPCS: 36415 ×2; 71010; 71275; 78452; 80053; 80061; 82553; 84439; 84443; 84484 ×2; 85025; 85379; 87641; 93005; 93010; 93016; 93017; 93018; 93880; 94761; 99285 ×2; A9500; J1650; J2785

== ENCOUNTER → 2016-12-10 | Outpatient (CLI) | payer OTHER ==
[2016-12-10 15:39] LABS: BASOPHILS # (AUTO) 0.03 10*3/UL; BASOPHILS % (AUTO) 0.3 % (0-1); EOSINOPHILS # (AUTO) 0.12 10*3/UL; EOSINOPHILS % (AUTO) 1.2 % (0-8); HEMATOCRIT 38.2 % (42.0-52.0); HEMOGLOBIN 12.5 g/dL (14.0-18.0); MEAN CORPUSCULAR HEMOGLOBIN 25.7 PG (27-31); MEAN CORPUSCULAR HGB CONC 32.7 g/dL (33-37); MEAN CORPUSCULAR VOLUME 78.4 FL (80-90); MEAN PLATELET VOLUME 9.5 FL (7.4-12.2); MONOCYTES # (AUTO) 0.72 10*3/UL (0.3-0.8); NEUTROPHILS # (AUTO) 7.46 10*3/UL; NEUTROPHILS % (AUTO) 72.7 % (50-80); PLATELET MORPHOLOGY COMMENT NORMAL MORPHOLOGY (NORM); RBC MORPHOLOGY COMMENT NORMAL MORPHOLOGY (NORM); RED BLOOD COUNT 4.87 10^6/uL (4.70-6.10); WBC MORPHOLOGY COMMENT NORMAL MORPHOLOGY (NORM)
[2016-12-10 15:54] LABS: BUN/CREATININE RATIO 25.83 (6-20); CALCIUM 8.8 mg/dL (8.7-10.7); CHOL/HDL RATIO 2.93 RATIO (0-4.0); LDL CHOLESTEROL,CALCULATED 54.6 mg/dL; SERUM ALBUMIN 3.8 g/dL (3.5-4.8)
== END ==
LOC: MOB LAB 15:09
DX: I25.10 Atherosclerotic heart disease of native coronary artery without angina pectoris (principal); K21.9 Gastro-esophageal reflux disease without esophagitis; E55.9 Vitamin D deficiency, unspecified; I10 Essential (primary) hypertension; M25.561 Pain in right knee; I73.9 Peripheral vascular disease, unspecified; G25.81 Restless legs syndrome; F17.200 Nicotine dependence, unspecified, uncomplicated; Z12.5 Encounter for screening for malignant neoplasm of prostate; Z95.5 Presence of coronary angioplasty implant and graft
CPT/HCPCS: 36415; 80053; 80061; 82306; 85025; G0103